=== PATIENT | male | born 1965 | race Hispanic/Latino ===

== ENCOUNTER 2023-02-04 00:54 | Emergency (ER) | payer SELFPAY ==
[~2023-02-04] VITALS: Ht 167.6 cm; Wt 119.7 kg
[2023-02-04 01:51] LABS: BASOPHILS # (AUTO) 0.1 (0.0-0.1); BASOPHILS % 0.5 % (0.0-1.0); EOSINOPHILS # (AUTO) 0.5 (0.0-0.4); EOSINOPHILS % 4.4 % (0.0-6.0); HEMATOCRIT 44.3 % (38.2-49.6); HEMOGLOBIN 14.6 g/dL (14.0-18.0); LYMPHOCYTES # (AUTO) 3.8 (1.0-3.2); LYMPHOCYTES % 35.9 % (18.0-39.1); MEAN CORPUSCULAR HEMOGLOBIN 29.9 pg (28-32); MEAN CORPUSCULAR VOLUME 90.6 fL (81-99); MONOCYTES # (AUTO) 0.9 (0.2-0.8); MONOCYTES % 8.3 % (4.4-11.3); NEUTROPHILS # (AUTO) 5.3 (2.1-6.9); NEUTROPHILS % 50.1 % (38.7-80.0); PLATELET COUNT 410 x10e3/uL (140-360); RED BLOOD COUNT 4.89 x10e6/uL (4.3-5.7); RED CELL DISTRIBUTION WIDTH 12.2 % (11.7-14.4)
[2023-02-04 02:01] LABS: INR 0.98; PROTHROMBIN TIME 13.5 seconds (11.9-14.5)
[2023-02-04 02:02] LABS: PARTIAL THROMBOPLASTIN TIME 38.1 seconds (23.8-35.5)
[2023-02-04 02:11] LABS: ALBUMIN 3.8 g/dL (3.5-5.0); ANION GAP 18.3 mmol/L (8-16); CALCIUM 9.6 mg/dL (8.4-10.2); CREATININE, SERUM 0.83 mg/dL (0.72-1.25); POTASSIUM 3.3 mmol/L (3.5-5.1)
[2023-02-04 02:18] LABS: CREATINE KINASE MB 0.9 ng/mL (0-5.0)
[2023-02-04] MEDS ORDERED: IOPAMIDOL 370 MG/ML 100 ML INFUS..BTL INJ ONE (02:29)
[2023-02-04 05:35] VITALS: BP 119/83
== END 2023-02-04 05:58 | disposition other institution (70) ==
LOC: ER 01:05
DX: M79.89 Other specified soft tissue disorders (principal); I26.99 Other pulmonary embolism without acute cor pulmonale; I10 Essential (primary) hypertension; E11.9 Type 2 diabetes mellitus without complications; Z20.822 Contact with and (suspected) exposure to COVID-19
CPT/HCPCS: 36415; 71260; 80053; 82550; 82553; 84484; 85025; 85610; 85730; 99284; U0002; Q9967